=== PATIENT | female | born 1985 | race African-American/Black ===

== ENCOUNTER 2016-05-01 23:05 | Emergency (ER) | payer SELFPAY ==
[~2016-05-01] VITALS: Ht 170.2 cm; Wt 145.4 kg
[2016-05-02] MEDS ORDERED: HYDROCODONE/ACETAMINOPHEN 5-325 MG TABLET PO ONE (01:00)
[2016-05-02] MEDS ORDERED: CYCLOBENZAPRINE HCL 10 MG TABLET ONE (01:00)
[2016-05-02] MEDS ORDERED: KETOROLAC TROMETHAMINE 60 MG/2 ML VIAL IM ONE (01:00)
[2016-05-02] MEDS ORDERED: OxyCODONE HCL/ACETAMINOPHEN 5-325 MG TABLET ONE (01:00)
[2016-05-02] MEDS ORDERED: CYCLOBENZAPRINE HCL 10 MG TABLET PO ONE (01:00)
[2016-05-02 01:10] VITALS: BP 128/100
== END 2016-05-02 02:45 | disposition home or self-care (01) ==
LOC: EMS 23:07
DX: S39.012A Strain of muscle, fascia and tendon of lower back, initial encounter (principal); S76.912A Strain of unspecified muscles, fascia and tendons at thigh level, left thigh, initial encounter; G89.29 Other chronic pain; I48.91 Unspecified atrial fibrillation; X58.XXXA Exposure to other specified factors, initial encounter; Y93.89 Activity, other specified; Y92.89 Other specified places as the place of occurrence of the external cause; Y99.8 Other external cause status
CPT/HCPCS: 81025; 96372; 99283; J1885

== ENCOUNTER 2016-06-06 20:44 | Emergency (ER) | payer OTHER ==
[~2016-06-06] VITALS: Ht 170.2 cm; Wt 136.0 kg
[2016-06-06] MEDS ORDERED: KETOROLAC TROMETHAMINE 60 MG/2 ML VIAL IM ONE (22:30)
[2016-06-06 22:35] VITALS: BP 142/80
== END 2016-06-06 22:52 | disposition home or self-care (01) ==
LOC: EMS 20:46
DX: S39.012A Strain of muscle, fascia and tendon of lower back, initial encounter (principal); X58.XXXA Exposure to other specified factors, initial encounter; Y93.89 Activity, other specified; Y92.89 Other specified places as the place of occurrence of the external cause; Y99.8 Other external cause status
CPT/HCPCS: 96372; 99283; J1885

== ENCOUNTER 2016-07-30 21:36 | Emergency (ER) | payer OTHER ==
[~2016-07-30] VITALS: Ht 170.2 cm; Wt 135.0 kg
[2016-07-30] MEDS ORDERED: MORPHINE SULFATE 4 MG/ML SYRINGE IM ONE (22:15)
[2016-07-30 22:17] VITALS: BP 134/69
== END 2016-07-30 22:19 | disposition home or self-care (01) ==
LOC: EMS 21:38
DX: M54.5 Low back pain (principal); G89.29 Other chronic pain; I48.91 Unspecified atrial fibrillation
CPT/HCPCS: 96372; 99283; J2270

== ENCOUNTER 2017-08-18 20:50 | Emergency (ER) | payer OTHER ==
[~2017-08-18] VITALS: Ht 160 cm; Wt 145.4 kg
[2017-08-18] MEDS ORDERED: D-ME118S13 PO (20:54)
[2017-08-18] MEDS ORDERED: LAMO100 PO (20:54)
[2017-08-18 20:55] VITALS: BP 120/65
== END 2017-08-18 22:31 | disposition home or self-care (01) ==
LOC: EMS 20:52
DX: J02.9 Acute pharyngitis, unspecified (principal)
CPT/HCPCS: 99283

== ENCOUNTER 2018-01-12 12:15 | Emergency (ER) | payer OTHER ==
[~2018-01-12] VITALS: Ht 170.2 cm; Wt 145.4 kg
[~2018-01-12 12:15] MED LIST: D-ME118S13 PO; LAMO100 PO
[2018-01-12] MEDS ORDERED: METHOCARBAMOL 500 MG TABLET PO ONE (14:45)
[2018-01-12] MEDS ORDERED: KETOROLAC TROMETHAMINE 60 MG/2 ML VIAL IM ONE (14:45)
[2018-01-12 16:21] VITALS: BP 129/84
== END 2018-01-12 16:25 | disposition home or self-care (01) ==
LOC: EMS 12:16
DX: S70.361A Insect bite (nonvenomous), right thigh, initial encounter (principal); S70.362A Insect bite (nonvenomous), left thigh, initial encounter; M54.5 Low back pain; G89.29 Other chronic pain; E66.01 Morbid (severe) obesity due to excess calories; F32.9 Major depressive disorder, single episode, unspecified; I48.91 Unspecified atrial fibrillation; Z90.49 Acquired absence of other specified parts of digestive tract; Z68.43 Body mass index [BMI] 50.0-59.9, adult; W57.XXXA Bitten or stung by nonvenomous insect and other nonvenomous arthropods, initial encounter; Y93.89 Activity, other specified; Y92.89 Other specified places as the place of occurrence of the external cause; Y99.8 Other external cause status
CPT/HCPCS: 96372; 99283; J1885